=== PATIENT | female | born 1940 | race Caucasian/White ===

== ENCOUNTER 2023-02-25 09:55 | Emergency (ER) | payer MEDICAID ==
[~2023-02-25] VITALS: Ht 162.6 cm; Wt 73.0 kg
[2023-02-25 11:10] LABS: BASOPHILS % 0.6 % (0.0-2.0); EOSINOPHILS % 2.3 % (0.0-5.0); HEMATOCRIT. 38.1 % (36.0-48.0); HEMOGLOBIN. 13.1 g/dL (12.0-16.0); LYMPHOCYTES % 34.2 % (20.0-50.0); MEAN CORPUSCULAR HEMOGLOBIN 31.6 pg (28.0-32.0); MEAN CORPUSCULAR VOLUME 91.8 fL (81.0-99.0); MEAN PLATELET VOLUME 9.2 fl (7.4-10.4); MONOCYTES % 7.4 % (2.0-8.0); NEUTROPHILS % 55.5 % (40.0-76.0); PLATELET 178 x1000/uL (130-400); RED BLOOD CELL COUNT 4.16 mill/uL (4.2-5.4); RED CELL DISTRIBUTION WIDTH 13.4 % (11.6-14.6)
[2023-02-25 11:16] LABS: CHLORIDE 106 mEq/L (98-107)
[2023-02-25 11:21] LABS: INR 1.1; PARTIAL THROMBOPLASTIN TIME 28.6 sec (23.4-31.0); PROTHROMBIN TIME 11.3 sec (9.6-11.0)
[2023-02-25 16:47] VITALS: BP 148/73
== END 2023-02-25 16:48 | disposition home or self-care (01) ==
LOC: ER 10:25
DX: C54.1 Malignant neoplasm of endometrium (principal); I10 Essential (primary) hypertension
CPT/HCPCS: 36415; 76830; 76856; 80053; 85025; 86850; 86900; 99284